=== PATIENT | female | born 1995 | race African-American/Black ===

== ENCOUNTER 2020-02-08 16:41 | Emergency (ER) | payer MEDICAID ==
[~2020-02-08] VITALS: Ht 162.6 cm; Wt 109.0 kg
[2020-02-08 16:45] VITALS: BP 166/87
== END 2020-02-08 19:05 | disposition home or self-care (01) ==
LOC: ER 16:41
DX: T16.1XXA Foreign body in right ear, initial encounter (principal); X58.XXXA Exposure to other specified factors, initial encounter; H60.8X1 Other otitis externa, right ear; I10 Essential (primary) hypertension
CPT/HCPCS: 99281

== ENCOUNTER 2021-07-10 17:43 | Emergency (ER) | payer MEDICAID ==
[~2021-07-10] VITALS: Ht 167.6 cm; Wt 120.0 kg
[2021-07-10 20:57] VITALS: BP 148/92
== END 2021-07-10 20:58 | disposition home or self-care (01) ==
LOC: ER 17:43
DX: T16.1XXA Foreign body in right ear, initial encounter (principal); X58.XXXA Exposure to other specified factors, initial encounter; Y93.89 Activity, other specified; Y92.89 Other specified places as the place of occurrence of the external cause
CPT/HCPCS: 69200; 81025; 99284